=== PATIENT | male | born 1945 | race Caucasian/White ===

== ENCOUNTER 2016-08-15 16:53 | Emergency (ER) | payer MEDICARE, OTHER ==
[2016-08-15] MEDS ORDERED: NITROGLYCERIN 0.4 MG TAB SL ONE (16:59)
[2016-08-15] MEDS ORDERED: ASPIRIN 81 MG CHEWABLE CTB ONE (16:59)
[2016-08-15] MEDS ORDERED: ADENOSINE 3 MG/ML SOL IV ONE ×3 (17:02→17:10)
[2016-08-15] MEDS ORDERED: SODIUM CHLORIDE 0.9% 1000ML 1,000 ML IV ONE (17:05)
[2016-08-15] MEDS: SODIUM CHLORIDE 0.9% FLUSH 10 ML SOL IV PRN ×2 (17:09→17:10)
[2016-08-15] MEDS ORDERED: MORPHINE SULFATE 10 MG/ML SOL IV PRN (17:13)
[2016-08-15] MEDS ORDERED: ASPIRIN 81 MG CHEWABLE CTB PO STA (17:13)
[2016-08-15] MEDS ORDERED: NITROGLYCERIN 0.4 MG TAB SL PRN (17:13)
[2016-08-15 17:23] LABS: CALCIUM 9.2 mg/dl (8.5-10.1)
[2016-08-15] MEDS ORDERED: ADENOSINE 3 MG/ML SOL IV PRN ×2 (17:30→17:34)
[2016-08-15 17:34] LABS: HEMATOCRIT 41 % (39-53); MEAN CORPUSCULAR HGB CONC 35.2 gm/dl (32.0-36.0); MEAN CORPUSCULAR VOLUME 94 fL (80-100)
[2016-08-15 17:35] LABS: LYMPHOCYTES % (MANUAL) 25 % (10-50)
[2016-08-15 17:36] LABS: BASOPHILS % (MANUAL) 0 % (0-3); EOSINOPHILS % (MANUAL) 6 % (0-9); NORMAL RBCS PRESENT
[2016-08-15 17:45] VITALS: RESP 16; TEMP 99.2
[2016-08-15 18:12] VITALS: BP 116/70; PULSE 85; O2SAT 97
== END 2016-08-15 18:55 | disposition short-term general hospital (02) | DRG 313 ==
LOC: ED 16:53
DX: R07.9 Chest pain, unspecified (principal); I47.1 Supraventricular tachycardia; Z95.1 Presence of aortocoronary bypass graft; Z95.5 Presence of coronary angioplasty implant and graft
CPT/HCPCS: 71010; 80048; 84484; 85007; 85027; 85610; 85730; 93005; 96365; 96374; 99284; 99285; J0153